=== PATIENT | female | born 1955 | race Caucasian/White ===

== ENCOUNTER 2018-11-11 09:48 | Day surgery (SDC) | payer BC ==
[2018-11-10 15:22] VITALS: BMI 30.3
[2018-11-11] MEDS ORDERED: CITRIC ACID/SODIUM CITRATE 30 ML UNIT-DOSE CUP ONE (11:15)
[2018-11-11 12:14] VITALS: TEMP 97.5
[2018-11-11 13:16] VITALS: BP 128/74; PULSE 63
--- NOTE | 2018-11-14 16:20 | PATH ---
Surgical Pathology Report Patient Name: DAVID ROGERS [facility]. Rec. #: [id number] /Age/Gender: 1955 (Age: 62) / F Account: [id number] Location: U-ENDOSCOPY Taken: 11/11/2018 Received: 11/11/2018 Reported: 11/14/2018 Physicians: Loly Leonard M.D. Specimen(s) Received A: BX DUODENUM B: ANTRUM BIOPSY C: GASTRIC BODY POLYP BIOPSY D: BX GE JUNCTION E: TRANSVERSE COLON POLYP BIOPSY Clinical History History of gastric and colon polyps, family history of gastric and colon cancer Postoperative diagnosis: Gastric polyps, hiatal hernia, diverticulosis, hemorrhoids, transverse colon polyp Final Diagnosis A. DUODENUM, BIOPSY: DUODENAL MUCOSA WITH MILD CHRONIC DUODENITIS AND PRESERVED VILLOUS ARCHITECTURE. B. STOMACH, ANTRUM, BIOPSY: GASTRIC ANTRAL MUCOSA WITH MILD CHRONIC GASTRITIS. IMMUNOHISTOCHEMICAL STAIN FOR H. PYLORI IS NEGATIVE. C. STOMACH, BODY, POLYP, BIOPSY: POLYPOID GASTRIC BODY MUCOSA WITH MILD CHRONIC GASTRITIS AND FOCAL FOVEOLAR HYPERPLASIA. IMMUNOHISTOCHEMICAL STAIN FOR H. PYLORI IS NEGATIVE. D. GE JUNCTION, BIOPSY: SQUAMOUS MUCOSA WITH MILD BASAL CELL HYPERPLASIA CONSISTENT WITH CHANGES OF MILD REFLUX ESOPHAGITIS. NO COLUMNAR MUCOSA, INTESTINAL METAPLASIA, OR DYSPLASIA IDENTIFIED. E. TRANSVERSE COLON, POLYP, BIOPSY: HYPERPLASTIC POLYP. Electronically Signed Marlene Kay M.D. Gross Description A. Received in formalin, labeled "duodenum biopsy" are 5 coleman, irregular portions of soft tissue ranging from 0.1-0.4 cm. in greatest dimension. The specimens are submitted in toto in one cassette. B. Received in formalin, labeled "antrum biopsy" are 2 coleman, irregular portions of soft tissue averaging 0.4 cm. in greatest dimension. The specimens are submitted in toto in one cassette. C. Received in formalin, labeled "gastric body polyp" are 2 coleman, irregular portions of soft tissue measuring 0.2 and 0.4 cm. in greatest dimension. The specimens are submitted in toto in one cassette. D. Received in formalin, labeled "GE junction biopsy" are 2 coleman, irregular portions of soft tissue averaging 0.3 cm. in greatest dimension. The specimens are submitted in toto in one cassette. E. Received in formalin, labeled "transverse colon polyp" are 4 coleman, irregular portions of soft tissue ranging from 0.3-0.5 cm. in greatest dimension. The specimens are submitted in toto in one cassette. 11/11/2018 [facility]2018
== END 2018-11-11 13:36 | disposition home or self-care (01) ==
LOC: JASU-ENDO 09:48
PROVIDERS: ATTEND Internal Medicine Gastroenterology
PROC: 0DB38ZX Excision of Lower Esophagus, Via Natural or Artificial Opening Endoscopic, Diagnostic (ICD-10-PCS; 2018-11-11)
PROC: 0DB68ZX Excision of Stomach, Via Natural or Artificial Opening Endoscopic, Diagnostic (ICD-10-PCS; 2018-11-11)
PROC: 0DBL8ZX Excision of Transverse Colon, Via Natural or Artificial Opening Endoscopic, Diagnostic (ICD-10-PCS; principal; 2018-11-11 11:30)
DX: Z12.11 Encounter for screening for malignant neoplasm of colon (principal); K63.5 Polyp of colon; K64.8 Other hemorrhoids; K57.30 Diverticulosis of large intestine without perforation or abscess without bleeding; K31.7 Polyp of stomach and duodenum; K44.9 Diaphragmatic hernia without obstruction or gangrene; K29.50 Unspecified chronic gastritis without bleeding; Z86.010 Personal history of colon polyps; Z80.0 Family history of malignant neoplasm of digestive organs
CPT/HCPCS: 88305-TC; 88342-TC

== ENCOUNTER 2024-04-21 04:33 | Day surgery (SDC) | payer OTHER, MEDICARE ==
[2024-04-17 13:57] VITALS: BMI 29.3
[2024-04-21 11:42] VITALS: TEMP 98.4
[2024-04-21 11:49] VITALS: RESP 18
[2024-04-21 12:32] VITALS: BP 134/84; PULSE 62
== END 2024-04-21 12:32 | disposition home or self-care (01) ==
LOC: JASU-ENDO 04:33
PROVIDERS: ATTEND Internal Medicine Gastroenterology
PROC: 0DBP8ZX Excision of Rectum, Via Natural or Artificial Opening Endoscopic, Diagnostic (ICD-10-PCS; principal; 2024-04-21 11:00)
DX: Z12.11 Encounter for screening for malignant neoplasm of colon (principal); D12.8 Benign neoplasm of rectum; K64.8 Other hemorrhoids; K57.30 Diverticulosis of large intestine without perforation or abscess without bleeding; Z86.010 Personal history of colon polyps; Z80.0 Family history of malignant neoplasm of digestive organs
CPT/HCPCS: 88305-TC